=== PATIENT | male | born 1980 | race Caucasian/White ===

== ENCOUNTER 2017-07-28 15:55 | Emergency (ER) | payer OTHER ==
[~2017-07-28] VITALS: Ht 182.9 cm; Wt 150.8 kg
[~2017-07-28 15:55] MED LIST: CEPH500C PO
[2017-07-28 16:00] VITALS: TEMP 36.5; Ht 182.9 cm; Wt 150.8 kg
[2017-07-28] MEDS ORDERED: LIDOCAINE 1% BUFFERED INJ 5 ML VIAL INFIL ONE (16:30)
[2017-07-28] MEDS ORDERED: CEFAZOLIN SOD 1 GM VIAL IM ONE (16:30)
--- NOTE | 2017-07-28 16:33 | DIAGNOSTIC IMAGING REPORT ---
L HAND MIN 3 VIEWS ROUTINE HISTORY: 37 years-old Male Injury acute left hand pain status post trauma COMPARISON: None available TECHNIQUE: 3 views of the left hand FINDINGS: Gauze material overlies the first digit which limits evaluation for acute nondisplaced fracture. There is an acute comminuted fracture of the mid aspect first proximal phalanx with ulnar displacement of the fracture fragments measuring up to 3 mm. No definite intra-articular fracture extension. Moderate soft tissue swelling. No opaque foreign body. There is a remote appearing fracture line with peripheral sclerosis involving the mid aspect of the scaphoid with subcortical cystic changes noted involving both the proximal and distal poles of the scaphoid. No articular collapse identified. Mild degenerative changes about the radiocarpal joint. IMPRESSION: 1. Acute comminuted mildly displaced fracture of the first proximal phalanx without intra-articular extension identified. 2. 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 The above report was generated using voice recognition software. It may contain grammatical, syntax or spelling errors. Electronically signed by: Enrique Mcgrath M.D. 07/28/2017 4:32 PM Dictated Date/Time: 07/28/2017 4:29 PM
[2017-07-28] MEDS ORDERED: HYDR-5688 PO (17:39)
[2017-07-28] MEDS ORDERED: CEPH500C2 PO (17:39)
[2017-07-28 17:46] VITALS: BP 150/94; PULSE 91; O2SAT 95
--- NOTE | 2017-07-28 21:00 | EMERGENCY ROOM VISIT NOTE ---
ED Visit Note First contact with patient: 16:05 Chief Complaint: I hurt my left thumb. History of Present Illness: Mr. Boss is a 37-year-old white male who ambulates into the ED complaining of a left thumb injury. Patient reports approximately 1 hour ago while he was at work he was using a manual post pounder. He reports he missed the post and accidentally hit his left thumb. He reports he noticed a soft tissue injury and control bleeding but did not wash his wound. Currently he is complaining of a throbbing and deep achy sensation to the proximal phalanx of the left thumb. He is rating his discomfort 6/10. His pain is nonradiating. His pain worsens with palpation and flexion and extension of the MCP and the DIP joints. He has not identified any alleviating factors related to the pain. He has not taken any medications for pain prior to arrival at the hospital. He denies any numbness/tingling or weakness of the thumb or any other additional parts of his left hand. Additionally he denies any previous significant injuries or surgeries to the left hand or thumb. Review of Systems: As noted above in history of present illness. Past Medical History: Patient denies. Current Medications: Patient denies. Allergies to Medications: Patient denies. Social History: Patient is currently employed; he feels safe in his home environment; he denies tobacco use. Tetanus Immunization Status: Patient reports up-to-date. Physical Examination: Vital Signs: Date Time Temp Pulse Resp B/P (MAP) Pulse Ox O2 Delivery O2 Flow Rate FiO2 07/28/17 17:46 91 16 150/94 95 Room Air 07/28/17 16:00 36.5 108 20 161/99 97 Room Air GENERAL: 37-year-old male in mild distress due to pain, nontoxic-appearing, afebrile and hemodynamically stable. NEUROLOGICAL: Awake, alert and oriented to person, place and time. Answering questions appropriately and following commands. SKIN: Warm, dry and pink. Left thumb: Over the lateral aspect of the proximal phalanx patient has a 1.6 cm full-thickness laceration with minimal bleeding. LEFT HAND: No deformity noted. Soft tissue injury as noted above. Decreased range of motion at the MCP and DIP joints against resistance due to pain and swelling. Throughout the thumb the skin was warm and pink and capillary refill is brisk. He was able to distinguish light sensations through all dermatomes. ED Course: Patient is assessed as noted above. Patient's medication list was reviewed. Patient was offered pain medication and refused. Left Hand X-Rays: Were read by myself and the radiologist showing a acute comminuted mildly displaced fracture of the first proximal phalanx without intra -articular extension. Radiologist also noted a remote fracture to the scaphoid with nonunion and secondary degenerative changes. Patient was given 1 g of Ancef IM. Patient's case was consulted with Dr. Haley, content production specialist; he reported that when he received the phone call for consultation he looked at the x-rays and additionally Dr. Parker, hand specialist looked at the x-rays and a follow-up appointment was already made for 3 PM tomorrow. Wound Repair: Complexity: Basic Verbal consent was obtained after the risks and benefits were explained. The skin was prepped with betadine and a sterile field set. Wound edges of the wound was anesthetized with 3.2 ml buffered 1% lidocaine. The wound was explored for foreign bodies and none found. Copious irrigation was performed using sterile saline. With direct pressure the bleeding subsided. Debridement was not performed. The wound edges were approximated using 5-0 Ethilon with 3 simple interrupted sutures. Hemostasis and excellent approximation was achieved. Antibacterial ointment, a sterile dressing and an Ortho-Glass thumb spica was applied. No complications and the patient tolerated the procedure well. Patient was educated about tonight's findings and instructed on his treatment plan; he verbalizes understanding and agreement with this plan. Clinical Impression: Open comminuted fracture of the proximal phalanx with laceration of the left thumb Disposition: Patient discharged home in stable condition; prior to departure he was reassessed and subjectively reported he was pain-free. Plan: Comfort measures, wound care, and signs of infection were discussed with the patient. She was placed on Keflex 500 mg 4 times a day for 7 days. Additionally he was placed on a sliding pain medicine scale including acetaminophen, ibuprofen and [place]; his name was checked on state database and no red flags were noted and he was given appropriate narcotic precautions. Patient was encouraged to follow-up with hand specialist tomorrow at 3 PM for definitive care and treatment. Patient was encouraged return the ED for worsening/uncontrolled pain, uncontrolled swelling, hand/finger weakness/numbness/tingling, any signs of infection or any new/concerning symptoms.
== END 2017-07-28 17:48 | disposition home or self-care (01) ==
LOC: C.EDB 15:56 → C.EDD 17:48
DX: S62.512B Displaced fracture of proximal phalanx of left thumb, initial encounter for open fracture (principal); W22.8XXA Striking against or struck by other objects, initial encounter; Y99.0 Civilian activity done for income or pay